=== PATIENT | male | born 1990 | race Caucasian/White ===

== ENCOUNTER 2025-02-04 03:26 | Inpatient (IN) | payer SELFPAY ==
[~2025-02-04] VITALS: Ht 177.8 cm; Wt 99.8 kg
[2025-02-04] MEDS: IBUPROFEN 600MG TABLET PO ONE (04:32)
[2025-02-04] MEDS ORDERED: CLINDAMYCIN 600 MG in DEXTROSE 5% WATER 50 ML IV ONE (06:00)
[2025-02-04] MEDS: HYDROCODONE/ACETAMINOPHEN 5/325MG TABLET PO ONE (06:13)
[2025-02-04 06:24] LABS: CHLORIDE 103 mEq/L (98-107); POTASSIUM 4.1 mEq/L (3.5-5.1); SODIUM 137 mEq/L (136-145)
[2025-02-04 06:25] LABS: CALCIUM 9.4 mg/dL (8.7-10.4); CARBON DIOXIDE 27 mEq/L (21-32)
[2025-02-04 06:30] LABS: CREATININE 0.9 mg/dL (0.6-1.3); GLUCOSE 124 mg/dL (70-105); UREA NITROGEN BLOOD 11 mg/dL (9-23)
[2025-02-04 06:49] LABS: BASOPHILS % 0.2 % (0.0-2.0); EOSINOPHILS % 0.2 % (0.0-5.0); HEMATOCRIT. 40.9 % (42.0-52.0); HEMOGLOBIN. 14.4 g/dL (14.0-18.0); LYMPHOCYTES % 9.1 % (20.0-50.0); MEAN CORPUSCULAR HEMOGLOBIN 31.8 pg (28.0-32.0); MEAN CORPUSCULAR HGB CONC 35.3 g/dL (31.0-37.0); MEAN CORPUSCULAR VOLUME 90.2 fL (80.0-94.0); MEAN PLATELET VOLUME 8.6 fl (7.4-10.4); MONOCYTES % 6.7 % (2.0-8.0); NEUTROPHILS % 83.8 % (40.0-76.0); PLATELET 236 x1000/uL (130-400); RED BLOOD CELL COUNT 4.53 mill/uL (4.7-6.1); WHITE BLOOD COUNT 14.1 x1000/uL (4.5-11.0)
[2025-02-04] MEDS: CLINDAMYCIN 600MG PREMIX 50 ML IV SCH (07:55)
[2025-02-04 09:00] VITALS: BP 129/69; PULSE 84; RESP 19; TEMP 36.8
[2025-02-04] MEDS ORDERED: ONDANSETRON HCL 4MG/2ML INJ IV PRN (09:45)
[2025-02-04] MEDS: ACETAMINOPHEN 325MG TABLET PO PRN (10:43)
[2025-02-04] MEDS: AMPICILLIN SOD/SULBACTAM NA 3 G in SODIUM CHLORIDE 0.9% 100 ML IV SCH (12:00)
[2025-02-04] MEDS: KETOROLAC 30MG/ML VIAL IV PRN (15:11)
[2025-02-04 16:00] VITALS: BP 124/52; PULSE 55; RESP 19; TEMP 36.1; O2SAT 98
[2025-02-04 20:00] VITALS: BP 116/56; PULSE 64; RESP 18; TEMP 37.2; O2SAT 96
[2025-02-04] MEDS ORDERED: NALOXONE HCL 0.4MG/ML VIAL IV PRN (21:15)
[2025-02-04] MEDS: VANCOMYCIN 2GM PMX (XELLIA) 400 ML IV SCH (22:11)
[2025-02-05] VITALS: BP 102/64; PULSE 16; RESP 59; TEMP 36.2; O2SAT 96
[2025-02-05] MEDS: VANCOMYCIN 1G PREMIX 200 ML IV SCH (03:25)
[2025-02-05] MEDS: HYDROCODONE/ACETAMINOPHEN 10/325MG TABLET PO PRN (03:33)
[2025-02-05 08:00] VITALS: BP 108/57; PULSE 65; RESP 18; TEMP 36.9; O2SAT 97
[2025-02-05 08:35] LABS: BASOPHILS % 0.3 % (0.0-2.0); EOSINOPHILS % 1.8 % (0.0-5.0); HEMATOCRIT. 40.4 % (42.0-52.0); HEMOGLOBIN. 14.1 g/dL (14.0-18.0); LYMPHOCYTES % 23.1 % (20.0-50.0); MEAN CORPUSCULAR HEMOGLOBIN 31.8 pg (28.0-32.0); MEAN CORPUSCULAR HGB CONC 34.8 g/dL (31.0-37.0); MEAN CORPUSCULAR VOLUME 91.5 fL (80.0-94.0); MEAN PLATELET VOLUME 8.6 fl (7.4-10.4); MONOCYTES % 7.6 % (2.0-8.0); NEUTROPHILS % 67.2 % (40.0-76.0); PLATELET 228 x1000/uL (130-400); RED BLOOD CELL COUNT 4.42 mill/uL (4.7-6.1); RED CELL DISTRIBUTION WIDTH 12.5 % (11.6-14.6); WHITE BLOOD COUNT 9.2 x1000/uL (4.5-11.0)
[2025-02-05 12:00] VITALS: BP 115/65; PULSE 45; RESP 18; TEMP 36.9; O2SAT 97
[2025-02-05 14:52] LABS: CHLORIDE 105 mEq/L (98-107); POTASSIUM 4.1 mEq/L (3.5-5.1); SODIUM 139 mEq/L (136-145)
[2025-02-05 14:53] LABS: CALCIUM 8.7 mg/dL (8.7-10.4); CARBON DIOXIDE 27 mEq/L (21-32)
[2025-02-05 14:58] LABS: CREATININE 0.7 mg/dL (0.6-1.3); GLUCOSE 92 mg/dL (70-105); UREA NITROGEN BLOOD 8 mg/dL (9-23)
[2025-02-05 16:00] VITALS: BP 115/61; PULSE 60; RESP 18; TEMP 36.5; O2SAT 97
[2025-02-05 20:00] VITALS: PULSE 57; RESP 18; TEMP 36.8; O2SAT 94
[2025-02-05] MEDS: VANCOMYCIN 1GM PMX (XELLIA) 200 ML IV SCH (20:32)
[2025-02-06] VITALS: BP 99/47; PULSE 75; RESP 18; TEMP 36.6; O2SAT 95
[2025-02-06] MEDS: HYDROCODONE/ACETAMINOPHEN 5/325MG TABLET PO PRN (03:59)
[2025-02-06 04:00] VITALS: BP 107/56; PULSE 50; RESP 17; TEMP 36.6; O2SAT 98
[2025-02-06 04:01] LABS: BASOPHILS % 0.4 % (0.0-2.0); EOSINOPHILS % 3.7 % (0.0-5.0); HEMATOCRIT. 40.5 % (42.0-52.0); HEMOGLOBIN. 14.2 g/dL (14.0-18.0); LYMPHOCYTES % 29.2 % (20.0-50.0); MEAN CORPUSCULAR HEMOGLOBIN 32.1 pg (28.0-32.0); MEAN CORPUSCULAR HGB CONC 35.1 g/dL (31.0-37.0); MEAN CORPUSCULAR VOLUME 91.4 fL (80.0-94.0); MEAN PLATELET VOLUME 8.3 fl (7.4-10.4); NEUTROPHILS % 58.7 % (40.0-76.0); PLATELET 261 x1000/uL (130-400); RED BLOOD CELL COUNT 4.43 mill/uL (4.7-6.1); RED CELL DISTRIBUTION WIDTH 12.5 % (11.6-14.6); WHITE BLOOD COUNT 6.8 x1000/uL (4.5-11.0)
[2025-02-06 04:07] LABS: CHLORIDE 104 mEq/L (98-107); SODIUM 139 mEq/L (136-145)
[2025-02-06 04:08] LABS: CARBON DIOXIDE 26 mEq/L (21-32)
[2025-02-06 04:09] LABS: CALCIUM 9.5 mg/dL (8.7-10.4)
[2025-02-06 04:13] LABS: CREATININE 0.9 mg/dL (0.6-1.3); GLUCOSE 115 mg/dL (70-105); UREA NITROGEN BLOOD 9 mg/dL (9-23)
[2025-02-06 08:00] VITALS: BP 100/57; PULSE 72; RESP 18; TEMP 36.6; O2SAT 96
[2025-02-06] MEDS: CIPROFLOXACIN 0.3% OPHTH SOLN 2.5ML RIGHT EAR SCH (09:01)
[2025-02-06 12:00] VITALS: BP 126/51; PULSE 71; RESP 19; TEMP 36.6; O2SAT 95
[2025-02-06] MEDS: VANCOMYCIN 1.25GM/250ML 250 ML IV SCH (12:17)
[2025-02-06 13:09] LABS: CLARITY URINE CLEAR (CLEAR); COLOR URINE YELLOW (YELLOW); GLUCOSE URINE NEGATIVE (NEGATIVE); KETONES URINE NEGATIVE (NEGATIVE); LEUKOCYTE ESTERASE URINE NEGATIVE (NEGATIVE); NITRITE URINE NEGATIVE (NEGATIVE); OCCULT BLOOD URINE NEGATIVE (NEGATIVE); PH URINE 7.5 (4.5-8.0); PROTEIN URINE NEGATIVE (NEGATIVE); SPECIFIC GRAVITY URINE 1.015 (1.005-1.030); UROBILINOGEN URINE 0.2 E.U./dL (0.2-1.0)
[2025-02-06 13:23] LABS: *AMPHETAMINES SCREEN URINE NEGATIVE (NEGATIVE); *BARBITURATES SCREEN URINE NEGATIVE (NEGATIVE); *BENZODIAZEPINES SCREEN URINE NEGATIVE (NEGATIVE); *COCAINE SCREEN URINE NEGATIVE (NEGATIVE); CANNABINOID URINE SCREEN PRESUMPTIVE POSITIVE (NEGATIVE); ECSTASY MDMA SCREEN URINE NEGATIVE (NEGATIVE); METHADONE URINE SCREEN NEGATIVE (NEGATIVE); OPIATES URINE SCREEN PRESUMPTIVE POSITIVE (NEGATIVE); PHENCYCLIDINE URINE SCREEN NEGATIVE (NEGATIVE)
[2025-02-06 16:00] VITALS: BP 111/86; PULSE 60; RESP 18; TEMP 36.6; O2SAT 95
[2025-02-06] MEDS ORDERED: AMOX1TAB16 MT (16:42)
[2025-02-06 17:18] VITALS: BP 111/86; PULSE 56; TEMP 97.9; O2SAT 95
== END 2025-02-06 18:10 | disposition home or self-care (01) | DRG 720 ==
LOC: ER 03:26 → 6EST 06:45 → EDBEDREQ 06:52 → EDBEDREQTM 06:52 → ENRESERV 07:01
PROVIDERS: ADMIT Internal Medicine; ATTEND Internal Medicine
DX: A41.9 Sepsis, unspecified organism (principal); H70.91 Unspecified mastoiditis, right ear; E66.9 Obesity, unspecified; Z68.31 Body mass index [BMI] 31.0-31.9, adult; H66.91 Otitis media, unspecified, right ear
CPT/HCPCS: 36415; 70480; 80048; 80202; 80305; 81003; 84145; 85025; 99285; A4606; J0295; J1885; J3370; J3490; J7050; J7060